=== PATIENT | male | born 1940 | race African-American/Black ===

== ENCOUNTER 2018-11-17 15:23 | Emergency (ER) | payer MEDICAID ==
[~2018-11-17] VITALS: Ht 180.3 cm; Wt 100.0 kg
[~2018-11-17 15:23] MED LIST: FERR1TAB25; IBUP-1008; trazadone
[2018-11-17] MEDS ORDERED: ACETAMINOPHEN 500MG TABLET PO ONE (16:00)
[2018-11-17 19:05] VITALS: BP 120/80
== END 2018-11-17 19:10 | disposition home or self-care (01) ==
LOC: ER 15:23
DX: S33.8XXA Sprain of other parts of lumbar spine and pelvis, initial encounter (principal); M25.562 Pain in left knee; L82.1 Other seborrheic keratosis; H53.9 Unspecified visual disturbance; H40.9 Unspecified glaucoma; W01.198A Fall on same level from slipping, tripping and stumbling with subsequent striking against other object, initial encounter; Y93.01 Activity, walking, marching and hiking; Y92.89 Other specified places as the place of occurrence of the external cause
CPT/HCPCS: 73502; 73560; 99283

== ENCOUNTER 2021-03-08 11:36 | Emergency (ER) | payer MEDICAID ==
[~2021-03-08] VITALS: Ht 177.8 cm; Wt 88.0 kg
[2021-03-08 12:26] LABS: BASOPHILS % 0.6 % (0.0-2.0); EOSINOPHILS % 10.9 % (0.0-5.0); HEMATOCRIT. 35.3 % (42.0-52.0); LYMPHOCYTES % 26.2 % (20.0-50.0); MEAN CORPUSCULAR HEMOGLOBIN 28.7 pg (28.0-32.0); MEAN CORPUSCULAR VOLUME 84.8 fL (80.0-94.0); MEAN PLATELET VOLUME 7.5 fl (7.4-10.4); MONOCYTES % 10.7 % (2.0-8.0); NEUTROPHILS % 51.6 % (40.0-76.0); PLATELET 215 x1000/uL (130-400); RED BLOOD CELL COUNT 4.17 mill/uL (4.7-6.1); RED CELL DISTRIBUTION WIDTH 15.3 % (11.6-14.6)
[2021-03-08 12:33] LABS: CHLORIDE 109 mEq/L (98-107)
[2021-03-08] MEDS ORDERED: POTASSIUM CHLORIDE 20MEQ TABLET SR PO ONE (13:15)
[2021-03-08] MEDS ORDERED: SODIUM CHLORIDE 0.9% 500 ML IV ONE (13:15)
[2021-03-08 16:15] VITALS: BP 155/96
== END 2021-03-08 16:30 | disposition left against medical advice (07) ==
LOC: ER 11:36 → CANBEDREQ 18:32
DX: R55 Syncope and collapse (principal); E87.8 Other disorders of electrolyte and fluid balance, not elsewhere classified; I10 Essential (primary) hypertension
CPT/HCPCS: 36415; 70450; 71045; 80053; 83880; 84484; 85025; 93005; 96360; 99285; J7040

== ENCOUNTER 2023-08-30 13:52 | Emergency (ER) | payer MEDICAID, OTHER ==
[~2023-08-30] VITALS: Ht 180.3 cm; Wt 86.0 kg
[2023-08-30 13:53] VITALS: O2SAT 100
[2023-08-30] MEDS: SODIUM CHLORIDE 0.9% 1000ML BAG (SEPSIS BOLUS) IV ONE (14:10)
[2023-08-30 14:31] LABS: BASOPHILS % 0.7 % (0.0-2.0); EOSINOPHILS % 12.6 % (0.0-5.0); HEMATOCRIT. 35.2 % (42.0-52.0); HEMOGLOBIN. 11.6 g/dL (14.0-18.0); MEAN CORPUSCULAR HEMOGLOBIN 27.8 pg (28.0-32.0); MEAN CORPUSCULAR HGB CONC 33.1 g/dL (31.0-37.0); MEAN CORPUSCULAR VOLUME 84.1 fL (80.0-94.0); MEAN PLATELET VOLUME 7.4 fl (7.4-10.4); MONOCYTES % 11.7 % (2.0-8.0); PLATELET 237 x1000/uL (130-400); RED BLOOD CELL COUNT 4.19 mill/uL (4.7-6.1); RED CELL DISTRIBUTION WIDTH 15.8 % (11.6-14.6); WHITE BLOOD COUNT 3.5 x1000/uL (4.5-11.0)
[2023-08-30 14:37] LABS: CHLORIDE 108 mEq/L (98-107); POTASSIUM 4.2 mEq/L (3.5-5.1); SODIUM 141 mEq/L (136-145)
[2023-08-30 14:38] LABS: CARBON DIOXIDE 29 mEq/L (21-32)
[2023-08-30 14:39] LABS: CALCIUM 8.9 mg/dL (8.7-10.4)
[2023-08-30 14:43] LABS: GLUCOSE 79 mg/dL (70-105); UREA NITROGEN BLOOD 13 mg/dL (9-23)
[2023-08-30 14:44] LABS: TROPONIN I HIGH SENSITIVITY 4 ng/L (3.0-53)
[2023-08-30 14:45] LABS: ALANINE AMINOTRANSFERASE 12 IU/L (10-49); ALBUMIN 4.1 g/dL (3.2-4.8); ASPARTATE AMINOTRANSFERASE 19 IU/L (<34)
[2023-08-30 14:46] LABS: BILIRUBIN TOTAL 0.4 mg/dL (0.1-1.0); PROTEIN TOTAL 7.5 g/dL (6.0-8.3)
[2023-08-30 14:49] LABS: PROTHROMBIN TIME 11.2 sec (9.6-11.0)
[2023-08-30 15:27] LABS: CLARITY URINE CLEAR (CLEAR); COLOR URINE YELLOW (YELLOW); GLUCOSE URINE NEGATIVE (NEGATIVE); KETONES URINE NEGATIVE (NEGATIVE); LEUKOCYTE ESTERASE URINE NEGATIVE (NEGATIVE); NITRITE URINE NEGATIVE (NEGATIVE); OCCULT BLOOD URINE NEGATIVE (NEGATIVE); PH URINE 5.5 (4.5-8.0); PROTEIN URINE NEGATIVE (NEGATIVE)
[2023-08-30 17:18] LABS: TROPONIN I HIGH SENSITIVITY 4 ng/L (3.0-53)
[2023-08-30 19:24] VITALS: BP 158/57; PULSE 53; RESP 12; TEMP 98.1
== END 2023-08-30 19:35 | disposition short-term general hospital (02) ==
LOC: ER 13:52
DX: R42 Dizziness and giddiness (principal); R00.1 Bradycardia, unspecified; I10 Essential (primary) hypertension
CPT/HCPCS: 80053; 81003; 83880; 83605; 85025; 85610; 86850; 86900; 86901; 87040; 87086; 84484; 87077; 36415; 84145; 71045; 93005; 99285; J7030; Z7610